=== PATIENT | female | born 1930 | race Caucasian/White ===

== ENCOUNTER 2016-10-23 19:06 | Inpatient (IN) | payer MEDICARE, MEDICAID ==
[~2016-10-23] VITALS: Ht 157.5 cm; Wt 62.6 kg
[~2016-10-23 19:06] MED LIST: GABA-531 PO; LEVO25TA7 PO; METR250T PO; OMEP40CA34 PO; Polyethylene Glycol 3350 PO; prednsione PO
[2016-10-23 20:20] LABS: BASOPHILS % 0.3 % (0.0-2.0); EOSINOPHILS % 0.7 % (0.0-5.0); HEMATOCRIT. 35.7 % (36.0-48.0); HEMOGLOBIN. 11.2 g/dL (12.0-16.0); LYMPHOCYTES % 11.1 % (20.0-50.0); MEAN CORPUSCULAR HEMOGLOBIN 25.7 pg (28.0-32.0); MEAN CORPUSCULAR HGB CONC 31.5 g/dL (31.0-37.0); MEAN CORPUSCULAR VOLUME 81.6 fL (81.0-99.0); MEAN PLATELET VOLUME 8.2 fl (7.4-10.4); MONOCYTES % 6.3 % (2.0-8.0); NEUTROPHILS % 81.6 % (40.0-76.0); PLATELET 463 x1000/uL (130-400); RED BLOOD CELL COUNT 4.37 mill/uL (4.2-5.4); WHITE BLOOD COUNT 12.8 x1000/uL (4.5-11.0)
[2016-10-23 20:25] LABS: PROTHROMBIN TIME 10.2 sec
[2016-10-23 20:38] LABS: ALANINE AMINOTRANSFERASE 17 IU/L (13-61); ALBUMIN 3.3 g/dL (3.4-5.0); ANION GAP 12; CALCIUM 9.5 mg/dL (8.5-10.1); CARBON DIOXIDE 28 mEq/L (21-32); CHLORIDE 96 mEq/L (98-107); INDEX HEMOLYSI 2 (1-3); INDEX ICTERIC 1 (1-4); INDEX LIPEMIC 1 (1-3); LIPASE 368 IU/L (73-393); TROPONIN I < 0.02 ng/mL (0.00-0.04); UREA NITROGEN BLOOD 10 mg/dL (7-21); eGFR > 60 mL/min (>60)
[2016-10-23] MEDS ORDERED: MORPHINE SULFATE 4 MG/ML CPJ (NOT FOR IM USE) IV ONE (22:30)
[2016-10-23] MEDS ORDERED: SODIUM CHLORIDE 0.9% 1,000 ML IV ONE (22:30)
[2016-10-23 23:02] LABS: CLARITY URINE CLOUDY (CLEAR); COLOR URINE YELLOW (YELLOW); GLUCOSE URINE NEGATIVE (NEGATIVE); KETONES URINE NEGATIVE (NEGATIVE); LEUKOCYTE ESTERASE URINE TRACE (NEGATIVE); NITRITE URINE NEGATIVE (NEGATIVE); OCCULT BLOOD URINE NEGATIVE (NEGATIVE); PH URINE 6.5 (4.5-8.0); PROTEIN URINE NEGATIVE (NEGATIVE); UROBILINOGEN URINE 0.2 E.U./dL (0.2-1.0)
[2016-10-24] MEDS ORDERED: LEVOFLOXACIN 500MG PREMIX 100 ML IV ONE
[2016-10-24] MEDS ORDERED: METRONIDAZOLE 500 MG PREMIX 100 ML IV ONE
[2016-10-24 00:13] LABS: SQUAMOUS EPITHELIAL CELL URINE FEW /lpf (RARE/1+)
[2016-10-24 00:14] LABS: BACTERIA URINE 1+; RBC URINE 0-2 /hpf (0-2); WBC URINE 0-2 /hpf (0-2)
[2016-10-24] MEDS ORDERED: MAGNESIUM/ALUMINUM HYDROXIDE/SIMETHICONE 30ML UDC PO PRN (02:45)
[2016-10-24] MEDS ORDERED: DIPHENHYDRAMINE 50MG/ML VIAL IV PRN (02:45)
[2016-10-24] MEDS ORDERED: LORAZEPAM 2MG/ML CPJ IV PRN (02:45)
[2016-10-24] MEDS ORDERED: ONDANSETRON HCL 4MG/2ML VIAL IV PRN (02:45)
[2016-10-24] MEDS ORDERED: LEVOFLOXACIN 500MG PREMIX 100 ML IV SCH (02:45)
[2016-10-24] MEDS ORDERED: CLONIDINE 0.1MG TABLET PO PRN (02:45)
[2016-10-24 04:00] VITALS: BP 123/64
[2016-10-24] MEDS: MORPHINE SULFATE 2 MG/ML CPJ (NOT FOR IM USE) IV PRN (04:24)
[2016-10-24] MEDS: METHYLPREDNISOLONE SOD SUCC 40 MG/ML VIAL IV SCH ×3 (06:11→21:38)
[2016-10-24] MEDS: SODIUM CHLORIDE 0.9% 1,000 ML IV SCH ×2 (06:16→16:33)
[2016-10-24 07:42] VITALS: BP 105/60
[2016-10-24] MEDS: METRONIDAZOLE IV SCH ×2 (09:42→17:51)
[2016-10-24] MEDS ORDERED: METRONIDAZOLE 500 MG PREMIX 250 MG in BAG 0 EACH IV SCH (10:00)
[2016-10-24] MEDS: ACETAMINOPHEN 325MG TABLET PO PRN (10:44)
[2016-10-24 11:38] VITALS: BP 94/51
[2016-10-24] MEDS ORDERED: IOHEXOL-300 100 ML BOTTLE ONE (12:04)
[2016-10-24] MEDS ORDERED: SODIUM CHLORIDE 0.9% 10ML VIAL ONE (12:04)
[2016-10-24 15:31] VITALS: BP 108/57
[2016-10-24] MEDS ORDERED: SORBITOL 70% SOLN 30ML PO NR (15:45)
[2016-10-24] MEDS: SENNOSIDES/DOCUSATE SOD 8.6/50MG TABLET PO SCH (16:33)
[2016-10-24] MEDS: MESALAMINE 400 MG CAPSULE.DR PO SCH (16:33)
[2016-10-24 20:00] VITALS: BP 118/63
[2016-10-24] MEDS: ZOLPIDEM TARTRATE 5MG TABLET PO SCH (21:43)
[2016-10-25] VITALS: BP 133/56
[2016-10-25] MEDS: LEVOFLOXACIN 250MG PREMIX 50 ML IV SCH (00:42)
[2016-10-25] MEDS ORDERED: LEVOFLOXACIN 250MG PREMIX 50 ML IV SCH (01:00)
[2016-10-25] MEDS: METRONIDAZOLE IV SCH ×2 (01:59→09:08)
[2016-10-25 04:00] VITALS: BP 129/50
[2016-10-25] MEDS: METHYLPREDNISOLONE SOD SUCC 40 MG/ML VIAL IV SCH ×3 (05:18→21:09)
[2016-10-25] MEDS: SODIUM CHLORIDE 0.9% 1,000 ML IV SCH ×2 (06:42→16:51)
[2016-10-25 07:57] VITALS: BP 107/51
[2016-10-25] MEDS: MESALAMINE 400 MG CAPSULE.DR PO SCH ×3 (09:08→16:50)
[2016-10-25] MEDS: SENNOSIDES/DOCUSATE SOD 8.6/50MG TABLET PO SCH (09:08)
[2016-10-25] MEDS: POLYETHYLENE GLYCOL 3350 (17GM) 1 DOSE PACK PO SCH (09:08)
[2016-10-25] MEDS: ACETAMINOPHEN 325MG TABLET PO PRN ×2 (09:32→16:50)
[2016-10-25 11:58] VITALS: BP 111/56
[2016-10-25] MEDS: MORPHINE SULFATE 2 MG/ML CPJ (NOT FOR IM USE) IV PRN (12:08)
[2016-10-25 15:39] VITALS: BP 109/61
[2016-10-25 20:00] VITALS: BP 121/59
[2016-10-25] MEDS ORDERED: ZOLPIDEM TARTRATE 5MG TABLET PO SCH (21:00)
[2016-10-25] MEDS: ZOLPIDEM TARTRATE 5MG TABLET PO SCH (21:09)
[2016-10-25] MEDS: METRONIDAZOLE 500 MG PREMIX 100 ML IV SCH (21:09)
[2016-10-26] VITALS: BP 134/85
[2016-10-26] MEDS: LEVOFLOXACIN 250MG PREMIX 50 ML IV SCH (01:49)
[2016-10-26 04:00] VITALS: BP 158/63
[2016-10-26] MEDS: METHYLPREDNISOLONE SOD SUCC 40 MG/ML VIAL IV SCH ×2 (05:01→13:32)
[2016-10-26 06:33] LABS: HEMOGLOBIN. 8.7 g/dL (12.0-16.0); MEAN CORPUSCULAR HEMOGLOBIN 25.7 pg (28.0-32.0); MEAN CORPUSCULAR HGB CONC 32.1 g/dL (31.0-37.0); MEAN PLATELET VOLUME 8.3 fl (7.4-10.4); PLATELET 367 x1000/uL (130-400); RED BLOOD CELL COUNT 3.37 mill/uL (4.2-5.4); RED CELL DISTRIBUTION WIDTH 16.4 % (11.6-14.6); WHITE BLOOD COUNT 15.1 x1000/uL (4.5-11.0)
[2016-10-26 06:56] LABS: DIFFERENTIAL COMMENT 1
[2016-10-26 07:11] LABS: CHLORIDE 105 mEq/L (98-107); INDEX HEMOLYSI 1 (1-3); INDEX ICTERIC 1 (1-4); INDEX LIPEMIC 1 (1-3)
[2016-10-26 07:22] LABS: ANION GAP 16; CALCIUM 8.5 mg/dL (8.5-10.1); CARBON DIOXIDE 21 mEq/L (21-32); UREA NITROGEN BLOOD 10 mg/dL (7-21); eGFR > 60 mL/min (>60)
[2016-10-26 08:00] VITALS: BP 157/92
[2016-10-26] MEDS: POLYETHYLENE GLYCOL 3350 (17GM) 1 DOSE PACK PO SCH (08:55)
[2016-10-26] MEDS: METRONIDAZOLE 500 MG PREMIX 100 ML IV SCH (08:55)
[2016-10-26] MEDS: MESALAMINE 400 MG CAPSULE.DR PO SCH ×2 (08:56→13:32)
[2016-10-26] MEDS: SENNOSIDES/DOCUSATE SOD 8.6/50MG TABLET PO SCH (08:57)
[2016-10-26] MEDS ORDERED: PREDNISONE 20MG TABLET PO SCH (09:00)
[2016-10-26] MEDS: SODIUM CHLORIDE 0.9% 1,000 ML IV SCH (11:04)
[2016-10-26 12:00] VITALS: BP 123/69
[2016-10-26 12:28] LABS: PLATELET ESTIMATE NORMAL
[2016-10-26 12:29] LABS: ANISOCYTOSIS 1+
[2016-10-26 14:25] VITALS: BP 123/69
== END 2016-10-26 16:40 | disposition home or self-care (01) | DRG 386 ==
LOC: ER 19:07 → 8WST 10-24 00:01
PROVIDERS: ADMIT Internal Medicine; ATTEND Internal Medicine
DX: K50.90 Crohn's disease, unspecified, without complications (principal); K56.69 Other intestinal obstruction; J98.11 Atelectasis; I50.9 Heart failure, unspecified; M19.90 Unspecified osteoarthritis, unspecified site; I11.0 Hypertensive heart disease with heart failure; K57.90 Diverticulosis of intestine, part unspecified, without perforation or abscess without bleeding; N28.1 Cyst of kidney, acquired; Z90.49 Acquired absence of other specified parts of digestive tract; Z79.899 Other long term (current) drug therapy; K52.9 Noninfective gastroenteritis and colitis, unspecified
CPT/HCPCS: 36415; 71010; 74000; 74177; 80048; 80053; 81001; 83605; 83690; 84484; 85025; 85610; 96361; 96374; 96375; 99285; A4216; J1956; J2270; J2405; J2920; J3490; J7030; J7040; J7512; Q9967

== ENCOUNTER 2016-12-23 19:20 | Inpatient (IN) | payer MEDICARE, MEDICAID ==
[~2016-12-23] VITALS: Ht 154.9 cm; Wt 59.0 kg
[~2016-12-23 19:20] MED LIST changes: +ALBU2.5V13 NEB; +DOCU-150 PO; +FERR-63 PO; -GABA-531 PO; -LEVO25TA7 PO; -OMEP40CA34 PO
[2016-12-23] MEDS ORDERED: SODIUM CHLORIDE 0.9% 1,000 ML IV ONE (19:52)
[2016-12-23] MEDS ORDERED: ONDANSETRON HCL 4MG/2ML VIAL IV STA (19:52)
[2016-12-23] MEDS ORDERED: MORPHINE SULFATE 4 MG/ML CPJ (NOT FOR IM USE) IV STA (19:52)
[2016-12-23 20:21] LABS: HEMATOCRIT. 32.6 % (36.0-48.0); HEMOGLOBIN. 10.9 g/dL (12.0-16.0); MEAN CORPUSCULAR VOLUME 84.1 fL (81.0-99.0); MEAN PLATELET VOLUME 7.8 fl (7.4-10.4); PLATELET 291 x1000/uL (130-400); RED BLOOD CELL COUNT 3.88 mill/uL (4.2-5.4)
[2016-12-23 20:25] LABS: PROTHROMBIN TIME 9.9 sec
[2016-12-23 20:36] LABS: PLATELET ESTIMATE NORMAL
[2016-12-23 21:21] LABS: CARBON DIOXIDE 30 mEq/L (21-32); CHLORIDE 95 mEq/L (98-107); ETHANOL BLOOD < 10 mg/dL; TROPONIN I < 0.02 ng/mL (0.00-0.04)
[2016-12-23 21:51] LABS: CLARITY URINE CLEAR (CLEAR); COLOR URINE YELLOW (YELLOW); GLUCOSE URINE NEGATIVE (NEGATIVE); KETONES URINE NEGATIVE (NEGATIVE); LEUKOCYTE ESTERASE URINE NEGATIVE (NEGATIVE); NITRITE URINE NEGATIVE (NEGATIVE); OCCULT BLOOD URINE NEGATIVE (NEGATIVE); PROTEIN URINE NEGATIVE (NEGATIVE); SPECIFIC GRAVITY URINE 1.005 (1.005-1.030); UROBILINOGEN URINE 0.2 E.U./dL (0.2-1.0)
[2016-12-23 22:06] LABS: *AMPHETAMINES SCREEN URINE NEGATIVE (NEGATIVE); *BARBITURATES SCREEN URINE NEGATIVE (NEGATIVE); *BENZODIAZEPINES SCREEN URINE NEGATIVE (NEGATIVE); *COCAINE SCREEN URINE NEGATIVE (NEGATIVE); CANNABINOID URINE SCREEN NEGATIVE (NEGATIVE); METHADONE URINE SCREEN NEGATIVE (NEGATIVE); OPIATES URINE SCREEN PRESUMTIVE POSITIVE (NEGATIVE); PHENCYCLIDINE URINE SCREEN NEGATIVE (NEGATIVE)
[2016-12-24] MEDS ORDERED: MAGNESIUM/ALUMINUM HYDROXIDE/SIMETHICONE 30ML UDC PO PRN (01:30)
[2016-12-24] MEDS ORDERED: ACETAMINOPHEN 650MG SUPP PR PRN (01:30)
[2016-12-24] MEDS ORDERED: NA PHOS,M-B/NA PHOS,DI-BA ENEMA 118ML PR PRN (01:30)
[2016-12-24] MEDS ORDERED: HYDROCODONE/ACETAMINOPHEN 5/325MG TABLET PO PRN (01:30)
[2016-12-24] MEDS ORDERED: LEVOFLOXACIN 500MG PREMIX 100 ML IV NR (01:30)
[2016-12-24] MEDS ORDERED: GUAIFENESIN 200MG/10ML SUGAR FREE UDC PO PRN (01:30)
[2016-12-24] MEDS ORDERED: ONDANSETRON HCL 4MG/2ML VIAL IV PRN (01:30)
[2016-12-24] MEDS ORDERED: CLONIDINE 0.1MG TABLET PO PRN (01:30)
[2016-12-24] MEDS ORDERED: ACETAMINOPHEN 650MG/20.3ML UDC GT PRN (01:30)
[2016-12-24] MEDS ORDERED: DIPHENHYDRAMINE 50MG/ML VIAL IV PRN (01:30)
[2016-12-24] MEDS ORDERED: ACETAMINOPHEN 325MG TABLET PO PRN (01:30)
[2016-12-24] MEDS ORDERED: IPRATROPIUM/ALBUTEROL 0.5-3(2.5)MG/3ML NEB INH PRN (01:30)
[2016-12-24] MEDS ORDERED: METRONIDAZOLE 500 MG PREMIX 100 ML IV NR ×2 (01:30→06:00)
[2016-12-24 03:20] VITALS: BP 162/74
[2016-12-24 04:00] VITALS: BP 162/74
[2016-12-24] MEDS: FAMOTIDINE 20MG/2ML VIAL IV SCH (04:13)
[2016-12-24] MEDS: SODIUM CHLORIDE 0.45% 1,000 ML IV SCH (04:13)
[2016-12-24] MEDS: SODIUM CHLORIDE 0.9% INJ 3ML FLUSH IVF SCH ×2 (06:53→20:07)
[2016-12-24 12:00] VITALS: BP 167/69
[2016-12-24] MEDS: MORPHINE SULFATE 2 MG/ML CPJ (NOT FOR IM USE) IV PRN ×2 (13:27→20:06)
[2016-12-24 16:00] VITALS: BP 166/68
[2016-12-24 17:17] LABS: BASOPHILS % 0.3 % (0.0-2.0); EOSINOPHILS % 2.1 % (0.0-5.0); HEMATOCRIT. 30.7 % (36.0-48.0); HEMOGLOBIN. 10.1 g/dL (12.0-16.0); LYMPHOCYTES % 19.6 % (20.0-50.0); MEAN CORPUSCULAR HEMOGLOBIN 28.2 pg (28.0-32.0); MEAN CORPUSCULAR VOLUME 85.4 fL (81.0-99.0); MEAN PLATELET VOLUME 8.1 fl (7.4-10.4); PLATELET 257 x1000/uL (130-400); RED BLOOD CELL COUNT 3.59 mill/uL (4.2-5.4); RED CELL DISTRIBUTION WIDTH 23.2 % (11.6-14.6)
[2016-12-24 17:37] LABS: CARBON DIOXIDE 29 mEq/L (21-32); CHLORIDE 102 mEq/L (98-107)
[2016-12-24 17:40] LABS: TROPONIN I < 0.02 ng/mL (0.00-0.04)
[2016-12-24 17:56] LABS: PLATELET ESTIMATE NORMAL
[2016-12-24] MEDS: MICONAZOLE NITRATE 2% OINT 71GM TOP SCH (22:42)
[2016-12-25 04:00] VITALS: BP 139/91
[2016-12-25] MEDS: SODIUM CHLORIDE 0.45% 1,000 ML IV SCH (04:15)
[2016-12-25 06:26] LABS: CARBON DIOXIDE 27 mEq/L (21-32); CHLORIDE 101 mEq/L (98-107)
[2016-12-25 06:48] LABS: BASOPHILS % 0.4 % (0.0-2.0); EOSINOPHILS % 2.4 % (0.0-5.0); HEMATOCRIT. 30.9 % (36.0-48.0); LYMPHOCYTES % 23.1 % (20.0-50.0); MEAN CORPUSCULAR HEMOGLOBIN 27.8 pg (28.0-32.0); MEAN CORPUSCULAR VOLUME 86.2 fL (81.0-99.0); MEAN PLATELET VOLUME 8.1 fl (7.4-10.4); MONOCYTES % 9.6 % (2.0-8.0); NEUTROPHILS % 64.5 % (40.0-76.0); PLATELET 266 x1000/uL (130-400); RED BLOOD CELL COUNT 3.59 mill/uL (4.2-5.4); RED CELL DISTRIBUTION WIDTH 22.8 % (11.6-14.6)
[2016-12-25 08:00] VITALS: BP 143/64
[2016-12-25] MEDS: FAMOTIDINE 20MG/2ML VIAL IV SCH (10:00)
[2016-12-25] MEDS: MORPHINE SULFATE 2 MG/ML CPJ (NOT FOR IM USE) IV PRN (10:01)
[2016-12-25] MEDS: MICONAZOLE NITRATE 2% OINT 71GM TOP SCH ×2 (10:19→21:00)
[2016-12-25 12:00] VITALS: BP 156/65
[2016-12-25] MEDS ORDERED: MAGNESIUM CITRATE 300ML SOLUTION PO NR (15:30)
[2016-12-25 16:00] VITALS: BP 125/69
[2016-12-25] MEDS ORDERED: METOCLOPRAMIDE HCL 10MG/2ML VIAL IV NR (16:30)
[2016-12-25] MEDS ORDERED: SORBITOL 70% SOLN 30ML PO NR (16:30)
[2016-12-25] MEDS: SENNOSIDES/DOCUSATE SOD 8.6/50MG TABLET PO SCH (17:36)
[2016-12-25 20:00] VITALS: BP 145/78
[2016-12-25] MEDS: METHYLPREDNISOLONE SOD SUCC 125 MG/2 ML VIAL IV SCH (22:35)
[2016-12-26] VITALS: BP 135/49
[2016-12-26 04:00] VITALS: BP 152/69
[2016-12-26 08:00] VITALS: BP 146/66
[2016-12-26] MEDS: FAMOTIDINE 20MG/2ML VIAL IV SCH (09:10)
[2016-12-26] MEDS: METHYLPREDNISOLONE SOD SUCC 125 MG/2 ML VIAL IV SCH (09:10)
[2016-12-26] MEDS: SENNOSIDES/DOCUSATE SOD 8.6/50MG TABLET PO SCH (09:10)
[2016-12-26 11:41] VITALS: BP 143/64
[2016-12-26] MEDS ORDERED: SENN1TAB35 PO (11:59)
[2016-12-26 12:00] VITALS: BP 141/89
[2016-12-26] MEDS ORDERED: LACT10SO6 MT (12:00)
== END 2016-12-26 12:22 | disposition home or self-care (01) | DRG 254 ==
LOC: ER 19:20 → 6EST 12-24 01:22
PROVIDERS: ADMIT Family Medicine; ATTEND Family Medicine
DX: K59.00 Constipation, unspecified (principal); J96.00 Acute respiratory failure, unspecified whether with hypoxia or hypercapnia; E87.2 Acidosis; K50.90 Crohn's disease, unspecified, without complications; I11.0 Hypertensive heart disease with heart failure; I50.9 Heart failure, unspecified; E88.09 Other disorders of plasma-protein metabolism, not elsewhere classified; E86.0 Dehydration; M19.90 Unspecified osteoarthritis, unspecified site; D75.89 Other specified diseases of blood and blood-forming organs; D64.9 Anemia, unspecified; K57.90 Diverticulosis of intestine, part unspecified, without perforation or abscess without bleeding; Z79.899 Other long term (current) drug therapy; Z82.49 Family history of ischemic heart disease and other diseases of the circulatory system; Z90.49 Acquired absence of other specified parts of digestive tract
CPT/HCPCS: 36415; 71010; 74000; 74176; 76700; 80053; 80305; 81003; 83690; 83880; 84484; 85025; 85610; 93005; 96374; 96375; 99285; A6261; C1893; G0482; J1956; J2270; J2405; J2765; J2930; J3490; J7030

== ENCOUNTER 2016-12-31 22:28 | Emergency (ER) | payer MEDICARE, MEDICAID ==
[~2016-12-31] VITALS: Ht 157.5 cm; Wt 65.0 kg
[~2016-12-31 22:28] MED LIST changes: +LACT10SO6 MT; -METR250T PO; +SENN1TAB35 PO; -prednsione PO
[2016-12-31] MEDS ORDERED: KETOROLAC 30MG/ML VIAL IV STA (23:16)
[2016-12-31] MEDS ORDERED: SODIUM CHLORIDE 0.9% 1,000 ML IV ONE (23:16)
[2016-12-31] MEDS ORDERED: ONDANSETRON HCL 4MG/2ML VIAL IV STA (23:16)
[2016-12-31] MEDS ORDERED: LORAZEPAM 2MG/ML CPJ IV ONE (23:30)
[2016-12-31 23:35] LABS: CHLORIDE 99 mEq/L (98-107); INDEX HEMOLYSI 1 (1-3); INDEX ICTERIC 1 (1-4); INDEX LIPEMIC 1 (1-3)
[2016-12-31 23:37] LABS: BASOPHILS % 0.9 % (0.0-2.0); EOSINOPHILS % 1.8 % (0.0-5.0); HEMATOCRIT. 39.8 % (36.0-48.0); HEMOGLOBIN. 13.7 g/dL (12.0-16.0); LYMPHOCYTES % 17.1 % (20.0-50.0); MEAN CORPUSCULAR HEMOGLOBIN 29.2 pg (28.0-32.0); MEAN CORPUSCULAR HGB CONC 34.3 g/dL (31.0-37.0); MEAN CORPUSCULAR VOLUME 85.2 fL (81.0-99.0); MEAN PLATELET VOLUME 8.1 fl (7.4-10.4); MONOCYTES % 8.8 % (2.0-8.0); NEUTROPHILS % 71.4 % (40.0-76.0); PLATELET 313 x1000/uL (130-400); RED BLOOD CELL COUNT 4.67 mill/uL (4.2-5.4); RED CELL DISTRIBUTION WIDTH 22.1 % (11.6-14.6); WHITE BLOOD COUNT 6.8 x1000/uL (4.5-11.0)
[2016-12-31 23:43] LABS: ALANINE AMINOTRANSFERASE 33 IU/L (13-61); ALBUMIN 3.4 g/dL (3.4-5.0); ANION GAP 11; CARBON DIOXIDE 28 mEq/L (21-32); LIPASE 219 IU/L (73-393); UREA NITROGEN BLOOD 12 mg/dL (7-21); eGFR 60 mL/min (>60)
[2016-12-31 23:49] LABS: DIFFERENTIAL COMMENT 1
[2017-01-01 03:05] VITALS: BP 132/72
== END 2017-01-01 03:05 | disposition home or self-care (01) ==
LOC: ER 23:02
DX: R10.12 Left upper quadrant pain (principal); I10 Essential (primary) hypertension; Z79.899 Other long term (current) drug therapy
CPT/HCPCS: 36415; 80053; 83690; 85025; 93005; 96361; 96374; 96375; 99285; J1885; J2060; J2405; J7030